=== PATIENT | male | born 1995 | race African-American/Black ===

== ENCOUNTER 2018-08-07 19:46 | Emergency (ER) | payer SELFPAY ==
[~2018-08-07] VITALS: Ht 175.3 cm; Wt 70.3 kg
[2018-08-07] MEDS ORDERED: AUGMENTIN 875-1 EACH PO (20:15)
== END 2018-08-07 20:30 | disposition home or self-care (01) ==
LOC: FSED 19:46
DX: L01.03 Bullous impetigo (principal)
CPT/HCPCS: 99283